=== PATIENT | female | born 1970 | race Caucasian/White ===

== ENCOUNTER 2019-04-02 05:25 | Day surgery (SDC) | payer MEDICARE, BC ==
[2019-04-02] MEDS ORDERED: BUPIVACAINE 0.5% (SDV) 30 ML, morphine SULFATE (PF) 8 MG, EPINEPHrine 0.3 MG, KETOROLAC... IRR (06:00)
[2019-04-02] MEDS ORDERED: SOD CHLORIDE 0.9% 100 ML, TRANEXAMIC ACID 3,000 MG IRR (06:00)
[2019-04-02] MEDS: DEXAMETHASONE 1 MG TAB PO (06:22)
[2019-04-02] MEDS: GABAPENTIN 300 MG CAP PO (06:23)
[2019-04-02] MEDS ORDERED: MIDAZOLAM 1 MG/ML 2 ML INJ (06:57)
[2019-04-02] MEDS ORDERED: FENTAnyl 50 MCG/ML VIAL ×3 (06:58→08:34)
[2019-04-02] MEDS: LACTATED RINGER'S 1,000 ML IV ×3 (07:00→18:17)
[2019-04-02] MEDS ORDERED: CA CHLORIDE (GM) 10% 10 ML INJ (07:35)
[2019-04-02] MEDS ORDERED: THROMBIN (BOVINE) 5,000 UNIT VIAL TP (07:35)
[2019-04-02] MEDS ORDERED: LIDOCAINE 2% (SDV) 5 ML INJ (08:47)
[2019-04-02] MEDS ORDERED: PROPOFOL 20 ML (08:47)
[2019-04-02] MEDS ORDERED: ROCURONIUM 50 MG INJ (08:47)
[2019-04-02] MEDS ORDERED: CEFAZOLIN 1 GM INJ (08:48)
[2019-04-02] MEDS ORDERED: ONDANSETRON 4 MG INJ (08:48)
[2019-04-02] MEDS ORDERED: oxyCODONE 5 MG TAB PO ×2 (09:00)
[2019-04-02] MEDS ORDERED: NON-FORMULARY/PATIENT OWN MED (Valsartan* (Diovan*) 160 MG) PO (09:00)
[2019-04-02] MEDS ORDERED: DIPHENHYDRAMINE 50 MG INJ IV ×2 (09:00→09:30)
[2019-04-02] MEDS ORDERED: NACL 0.9% 3 ML SYG IV (09:00)
[2019-04-02] MEDS ORDERED: ONDANSETRON 4 MG INJ IV ×2 (09:00→09:30)
[2019-04-02] MEDS ORDERED: TIZANIDINE 4 MG TAB PO (09:00)
[2019-04-02] MEDS ORDERED: MAGNESIUM HYDROXIDE 30ML CUP PO (09:00)
[2019-04-02] MEDS ORDERED: HYDROmorphONE 1 MG/5 ML IV SYRINGE IV ×2 (09:30→09:34)
[2019-04-02] MEDS ORDERED: FENTAnyl 50 MCG/ML VIAL IV (09:30)
[2019-04-02] MEDS ORDERED: MEPERIDINE 25 MG INJ IV (09:30)
[2019-04-02] MEDS ORDERED: KETOROLAC 30 MG INJ IV (09:30)
[2019-04-02] MEDS ORDERED: METOCLOPRAMIDE 10 MG INJ IV (09:30)
[2019-04-02] MEDS ORDERED: CEFAZOLIN 1 GM/50 ML (PMX) 50 ML IVPB (09:32)
[2019-04-02] MEDS: ACETAMINOPHEN 1000MG/100ML IV 100 ML IVPB ×2 (09:46→17:00)
[2019-04-02] MEDS: CEFAZOLIN 2 GM/50 ML (PMX) 50 ML IVPB (09:52)
[2019-04-02] MEDS: TRANEXAMIC ACID 1GM/100ML(PMX) 100 ML IVPB (09:59)
[2019-04-02] MEDS: HYDROmorphONE 1 MG/5 ML IV SYRINGE IV (10:31)
[2019-04-02] MEDS: CEFAZOLIN 1 GM/50 ML (PMX) 50 ML IVPB (10:50)
[2019-04-02] MEDS: PREGABALIN 100 MG CAP PO ×2 (11:30→21:00)
[2019-04-02] MEDS: LOSARTAN 50 MG TAB PO ×2 (11:30→21:00)
[2019-04-02] MEDS: DULOXETINE 30 MG CAP DR PO ×2 (11:30→21:01)
[2019-04-02] MEDS: SENNA/DOCUSATE NA (8.6MG/50MG) TAB PO ×2 (11:30→21:00)
[2019-04-02] MEDS: DEXAMETHASONE 2 MG TAB PO ×2 (12:19→18:04)
[2019-04-02] MEDS: POLYETHYLENE GLYCOL 17 GM PACKET PO (12:19)
[2019-04-02] MEDS: morphine (ER) 15 MG TAB PO ×2 (14:09→21:00)
[2019-04-02] MEDS: HYDROmorphONE 1 MG/ML SYG IV ×2 (18:11→22:59)
[2019-04-02] MEDS: FAMOTIDINE 20 MG TAB PO (21:00)
[2019-04-02] MEDS ORDERED: ZOLPIDEM 5 MG TAB PO (21:00)
[2019-04-02] MEDS ORDERED: DULOXETINE 30 MG CAP DR PO (23:00)
[2019-04-03] MEDS: ACETAMINOPHEN 1000MG/100ML IV 100 ML IVPB (01:06)
[2019-04-03] MEDS: DEXAMETHASONE 2 MG TAB PO ×2 (01:06→06:17)
[2019-04-03] MEDS: oxyCODONE 5 MG TAB PO ×2 (01:06→06:17)
[2019-04-03] MEDS: CEFAZOLIN 1 GM/50 ML (PMX) 50 ML IVPB ×2 (01:07→08:29)
[2019-04-03] MEDS: LACTATED RINGER'S 1,000 ML IV (02:44)
[2019-04-03] MEDS: morphine (ER) 15 MG TAB PO (04:45)
[2019-04-03] MEDS: LEVOTHYROXINE 125 MCG TAB PO (06:17)
[2019-04-03] MEDS: SENNA/DOCUSATE NA (8.6MG/50MG) TAB PO (08:28)
[2019-04-03] MEDS: ASPIRIN (EC) 325 MG TAB PO (08:28)
[2019-04-03] MEDS: LOSARTAN 50 MG TAB PO (08:29)
[2019-04-03] MEDS: PREGABALIN 100 MG CAP PO (08:29)
[2019-04-03] MEDS: POLYETHYLENE GLYCOL 17 GM PACKET PO (08:29)
[2019-04-04] MEDS ORDERED: MAGNESIUM HYDROXIDE 30ML CUP PO (21:00)
== END 2019-04-03 11:16 | disposition home or self-care (01) ==
LOC: SDS 05:25 → REC 08:34 → MS1 10:48 → REC 10:48 → MS1 22:39 → REC 22:39 → SDS 08:33 → MS1 09:08
DX: S76.211D Strain of adductor muscle, fascia and tendon of right thigh, subsequent encounter (principal); X58.XXXD Exposure to other specified factors, subsequent encounter; E03.9 Hypothyroidism, unspecified; I10 Essential (primary) hypertension
CPT/HCPCS: 27062; 72170; 84703; 86999; 97161